=== PATIENT | male | born 1990 | race American Indian/Alaskan Native ===

== ENCOUNTER 2020-10-07 17:25 | Emergency (ER) | payer OTHER ==
[2020-10-07] MEDS ORDERED: ACETAMINOPHEN 500 MG TAB PO ONE (20:17)
[2020-10-07] MEDS ORDERED: IBUPROFEN 600 MG TAB PO ONE (20:33)
[2020-10-07 20:52] LABS: Basophils % (Auto) 0.5 % (0.0-1.8); Hematocrit 50.2 % (35.5-45.6); Mean Corpuscular HGB Conc 34 % (32-34); Mean Corpuscular Volume 83 fl (84-94); Monocytes # (Auto) 0.4 K/mm3 (0.0-0.8); Monocytes % (Auto) 9.3 % (0.0-7.3); Platelet Count 240 K/mm3 (140-440); Red Blood Count 6.08 M/mm3 (3.65-5.03); Red Cell Distribution Width 13.1 % (13.2-15.2)
--- NOTE | 2020-10-07 21:09 | XRay Report ---
CHEST 2 VIEWS INDICATION / CLINICAL INFORMATION: cough, fever...Patient c/o having chills, feeling faint, and not being able to eat anything for a few days.. COMPARISON: None available. FINDINGS: SUPPORT DEVICES: None. HEART / MEDIASTINUM: No significant abnormality. LUNGS / PLEURA: No significant pulmonary or pleural abnormality. No pneumothorax. ADDITIONAL FINDINGS: No significant additional findings. IMPRESSION: 1. No acute findings. Signer Name: Paxton Yeboah MD Signed: 10/07/2020 9:04 PM Workstation Name: [id number]
[2020-10-07] MEDS ORDERED: SODIUM CHLORIDE 0.9% 1000 ML 1,000 ML IV ONE ×2 (21:29→21:57)
--- NOTE | 2020-10-07 22:01 | Emergency Department Report ---
ED General Adult HPI - General Chief complaint: Weakness Stated complaint: CHILLS Time Seen by Provider: 10/07/20 20:41 Source: patient Mode of arrival: Ambulatory Limitations: No Limitations - History of Present Illness Initial comments: Patient is a 30-year-old male presents emergency room with complaints of lightheadedness that began 3 days ago. He has associated fever, chills, generalized body aches, generalized weakness, fatigue, no appetite, mild dry cough. He denies any vomiting, diarrhea, shortness of breath, chest pain, abdominal pain, leg swelling. Patient denies any past medical history. He denies any history of any kidney issues. He denies any NSAID use. No allergies to medicines. He has not been vaccinated for COVID-19. He has not received COVID-19 testing. - Related Data Allergies Allergy/AdvReac Type Severity Reaction Status Date / Time No Known Allergies Allergy Unverified 10/07/20 20:06 ED Review of Systems ROS: Stated complaint: CHILLS Other details as noted in HPI Comment: All other systems reviewed and negative ED Past Medical Hx - Past Medical History Previous Medical History?: No - Surgical History Past Surgical History?: No ED Physical Exam - General Limitations: No Limitations General appearance: alert, in no apparent distress - Head Head exam: Present: atraumatic, normocephalic - Eye Eye exam: Present: normal appearance - ENT ENT exam: Present: mucous membranes moist - Respiratory Respiratory exam: Present: normal lung sounds bilaterally. Absent: respiratory distress, wheezes, rales, rhonchi, stridor, chest wall tenderness, accessory muscle use, decreased breath sounds, prolonged expiratory - Cardiovascular Cardiovascular Exam: Present: regular rate, normal rhythm, normal heart sounds. Absent: systolic murmur, diastolic murmur, rubs, gallop - GI/Abdominal GI/Abdominal exam: Present: soft, normal bowel sounds. Absent: distended, tenderness, guarding, rebound, rigid - Neurological Exam Neurological exam: Present: alert, oriented X3 - Psychiatric Psychiatric exam: Present: normal affect, normal mood - Skin Skin exam: Present: warm, dry, intact ED Course Vital Signs 10/07/20 10/08/20 20:01 00:00 Temperature 101.7 F H 99.0 F Pulse Rate 107 H 93 H Respiratory 18 Rate Blood Pressure 119/68 Blood Pressure 108/76 [Left] O2 Sat by Pulse 96 95 Oximetry - EJ/Peripheral Line Arm R Time Out Performed: Yes Indications: other (needed IV for fluids, staff unavailable) Skin Cleansed in Sterile Fashion: Yes Size: 20 Dressing Placed: Tegaderm Patient Tolerated Procedure: well, no complications ED Medical Decision Making - Lab Data Result diagrams: 10/07/20 20:40 10/07/20 20:40 Lab Results 10/07/20 10/07/20 10/07/20 Range/Units 20:40 20:40 20:40 WBC 4.4 L (4.5-11.0) K/mm3 RBC 6.08 H (3.65-5.03) M/mm3 Hgb 17.0 H (11.8-15.2) gm/dl Hct 50.2 H (35.5-45.6) % MCV 83 L (84-94) fl MCH 28 (28-32) pg MCHC 34 (32-34) % RDW 13.1 L (13.2-15.2) % Plt Count 240 (140-440) K/mm3 Lymph % (Auto) 24.0 (13.4-35.0) % [place] % (Auto) 9.3 H (0.0-7.3) % Eos % (Auto) 0.0 (0.0-4.3) % Baso % (Auto) 0.5 (0.0-1.8) % Lymph # (Auto) 1.0 L (1.2-5.4) K/mm3 [place] # (Auto) 0.4 (0.0-0.8) K/mm3 Eos # (Auto) 0.0 (0.0-0.4) K/mm3 Baso # (Auto) 0.0 (0.0-0.1) K/mm3 Seg Neutrophils % 66.2 (40.0-70.0) % Seg Neutrophils # 2.9 (1.8-7.7) K/mm3 Sodium 138 (137-145) mmol/L Potassium 4.1 (3.6-5.0) mmol/L Chloride 101.2 (98-107) mmol/L Carbon Dioxide 25 (22-30) mmol/L Anion Gap 16 mmol/L BUN 13 (9-20) mg/dL Creatinine 1.8 H (0.8-1.3) mg/dL Estimated GFR 44 ml/min BUN/Creatinine Ratio 7 % Glucose 95 (75-100) mg/dL Calcium 8.0 L (8.4-10.2) mg/dL Magnesium 2.00 (1.7-2.3) mg/dL Total Bilirubin 0.20 (0.1-1.2) mg/dL AST 49 H (5-40) units/L ALT 81 H (7-56) units/L Alkaline Phosphatase 47 (35-129) units/L Total Creatine Kinase 1010 H (55-170) units/L Total Protein 6.9 (6.3-8.2) g/dL Albumin 4.0 (3.9-5) g/dL Albumin/Globulin Ratio 1.4 % Lipase 35 (13-60) units/L Urine Color (Yellow) Urine Turbidity (Clear) Urine pH (5.0-7.0) Ur Specific [place] (1.003-1.030) Urine Protein (Negative) mg/dL Urine Glucose (UA) (Negative) mg/dL Urine Ketones (Negative) mg/dL Urine Blood (Negative) Urine Nitrite (Negative) Urine Bilirubin (Negative) Urine Urobilinogen (<2.0) mg/dL Ur Leukocyte Esterase (Negative) Urine WBC (Auto) (0.0-6.0) /HPF Urine RBC (Auto) (0.0-6.0) /HPF Urine Mucus /HPF 10/07/20 Range/Units 23:57 WBC (4.5-11.0) K/mm3 RBC (3.65-5.03) M/mm3 Hgb (11.8-15.2) gm/dl Hct (35.5-45.6) % MCV (84-94) fl MCH (28-32) pg MCHC (32-34) % RDW (13.2-15.2) % Plt Count (140-440) K/mm3 Lymph % (Auto) (13.4-35.0) % [place] % (Auto) (0.0-7.3) % Eos % (Auto) (0.0-4.3) % Baso % (Auto) (0.0-1.8) % Lymph # (Auto) (1.2-5.4) K/mm3 [place] # (Auto) (0.0-0.8) K/mm3 Eos # (Auto) (0.0-0.4) K/mm3 Baso # (Auto) (0.0-0.1) K/mm3 Seg Neutrophils % (40.0-70.0) % Seg Neutrophils # (1.8-7.7) K/mm3 Sodium (137-145) mmol/L Potassium (3.6-5.0) mmol/L Chloride (98-107) mmol/L Carbon Dioxide (22-30) mmol/L Anion Gap mmol/L BUN (9-20) mg/dL Creatinine (0.8-1.3) mg/dL Estimated GFR ml/min BUN/Creatinine Ratio % Glucose (75-100) mg/dL Calcium (8.4-10.2) mg/dL Magnesium (1.7-2.3) mg/dL Total Bilirubin (0.1-1.2) mg/dL AST (5-40) units/L ALT (7-56) units/L Alkaline Phosphatase (35-129) units/L Total Creatine Kinase (55-170) units/L Total Protein (6.3-8.2) g/dL Albumin (3.9-5) g/dL Albumin/Globulin Ratio % Lipase (13-60) units/L Urine Color Jojo (Yellow) Urine Turbidity Clear (Clear) Urine pH 5.0 (5.0-7.0) Ur Specific [place] 1.029 (1.003-1.030) Urine Protein 100 mg/dl (Negative) mg/dL Urine Glucose (UA) Neg (Negative) mg/dL Urine Ketones Tr (Negative) mg/dL Urine Blood Neg (Negative) Urine Nitrite Neg (Negative) Urine Bilirubin Neg (Negative) Urine Urobilinogen 4.0 (<2.0) mg/dL Ur Leukocyte Esterase Neg (Negative) Urine WBC (Auto) 6.0 (0.0-6.0) /HPF Urine RBC (Auto) 3.0 (0.0-6.0) /HPF Urine Mucus 1+ /HPF Vital Signs 10/07/20 10/08/20 20:01 00:00 Temperature 101.7 F H 99.0 F Pulse Rate 107 H 93 H Respiratory 18 Rate Blood Pressure 119/68 Blood Pressure 108/76 [Left] O2 Sat by Pulse 96 95 Oximetry - Radiology Data Radiology results: report reviewed Ordering Physician: JODIE COONEY Date of Service: 10/07/20 Procedure(s): XR chest routine 2V Accession Number(s): [id number] cc: JODIE COONEY Fluoro Time In Minutes: CHEST 2 VIEWS INDICATION / CLINICAL INFORMATION: cough, fever...Patient c/o having chills, feeling faint, and not being able to eat anything for a few days.. COMPARISON: None available. FINDINGS: SUPPORT DEVICES: None. HEART / MEDIASTINUM: No significant abnormality. LUNGS / PLEURA: No significant pulmonary or pleural abnormality. No pneumothorax. ADDITIONAL FINDINGS: No significant additional findings. IMPRESSION: 1. No acute findings. Signer Name: Paxton Yeboah MD Signed: 10/07/2020 9:04 PM Workstation Name: [id number] Transcribed By: GOSIA Dictated By: Paxton Yeboah MD Electronically Authenticated By: Paxton Yeboah MD Signed Date/Time: 10/07/202103 DD/ 03 TD/TT: - Medical Decision Making Patient is a 30-year-old male presents emergency room with complaints of lightheadedness that began 3 days ago. He has associated fever, chills, generalized body aches, generalized weakness, fatigue, no appetite, mild dry cough. He denies any vomiting, diarrhea, shortness of breath, chest pain, abdominal pain, leg swelling. Patient denies any past medical history. He denies any history of any kidney issues. He denies any NSAID use. No allergies to medicines. He has not been vaccinated for COVID-19. He has not received COVID-19 testing. Initial vitals with fever and mild tachycardia. Patient states he has been taking Excedrin and DayQuil at home. No abnormality on physical examination as documented in chart. Labs show evidence of dehydration, JOSE MIGUEL, elevated CK, mildly elevated AST and ALT. Patient given 2 L normal saline while in emergency department. UA shows evidence of proteinuria. CXR: 1. No acute findings. Discussed all results with patient and answer questions. Symptoms could be consistent with URI and JOSE MIGUEL from dehydration. Discussed case with Dr. Azevedo, ER attending who recommended outpatient follow-up. advised pt Please increase your fluid intake over the next several days. Avoid NSAIDs. May take Tylenol as needed for fever or body aches. Follow-up with a primary care doctor for reexamination and to have repeat labs drawn as you had an abnormal kidney function. Return to emergency room immediately for any new or w orsening symptoms including but not limited to difficulty breathing, shortness of breath, severe chest pain, unable to tolerate by mouth intake, etc. recommend for you to get outpatient COVID-19 testing and self quarantine as necessary. Recommend for you to get a pulse oximetry meter [id number] and to return to emergency room if your oxygen is dropping below 93%. Critical care attestation.: If time is entered above; I have spent that time in minutes in the direct care of this critically ill patient, excluding procedure time. ED Disposition Clinical Impression: Lightheaded, Cough, Generalized weakness, OJSE MIGUEL (acute kidney injury), Elevated CK Fatigue Qualifiers: Fatigue type: unspecified Qualified Code(s): R53.83 - Other fatigue Fever Qualifiers: Fever type: unspecified Qualified Code(s): R50.9 - Fever, unspecified Disposition: TO HOME OR SELFCARE Is pt being admited?: No Does the pt Need Aspirin: No Condition: Stable Instructions: Acute Kidney Injury, Adult, Upper Respiratory Infection, Adult Additional Instructions: Please increase your fluid intake over the next several days. Avoid NSAIDs. Ma y take Tylenol as needed for fever or body aches. Follow-up with a primary care doctor for reexamination and to have repeat labs drawn as you had an abnormal kidney function. Return to emergency room immediately for any new or worsening symptoms including but not limited to difficulty breathing, shortness of breath, severe chest pain, unable to tolerate by mouth intake, etc. recommend for you to get outpatient COVID-19 testing and self quarantine as necessary. Recommend for you to get a pulse oximetry meter [id number] and to return to emergency room if your oxygen is dropping below 93%. Referrals: ROBERT PIPER MD [Staff Physician] - 2-3 Days [facility] [Provider Group] - 2-3 Days [facility], [LAB/CONTRACT] - 2-3 Days Time of Disposition: 00:19 Print Language: ICELANDIC
[2020-10-08] VITALS: BP 108/76
[2020-10-08 00:11] LABS: Bilirubin,Urine NEG (Negative); Blood,Urine NEG (Negative); Color,Urine Amber (Yellow); Mucus,Urine 1+ /HPF
== END 2020-10-08 02:05 | disposition home or self-care (01) ==
LOC: ED 17:25
DX: N17.9 Acute kidney failure, unspecified (principal); R53.83 Other fatigue; R42 Dizziness and giddiness; R74.8 Abnormal levels of other serum enzymes
CPT/HCPCS: 36415; 71046; 80053; 81001; 82550; 83690; 83735; 85025; 96360; 96361; 99284; J7030